=== PATIENT | female | born 1945 | race Caucasian/White ===

== ENCOUNTER 2024-01-26 22:48 | Emergency (ER) | payer OTHER, BC ==
[~2024-01-26] VITALS: Ht 152.4 cm; Wt 66.8 kg
[2024-01-26 23:08] VITALS: BP 145/93; PULSE 65; RESP 16; TEMP 97.6; O2SAT 100
== END 2024-01-27 03:12 | disposition left against medical advice (07) ==
LOC: MED 22:48
DX: M25.572 Pain in left ankle and joints of left foot (principal); Z53.21 Procedure and treatment not carried out due to patient leaving prior to being seen by health care provider